=== PATIENT | male | born 1990 ===

== ENCOUNTER 2018-08-01 08:17 | Day surgery (SDC) | payer OTHER ==
[2018-07-30 14:26] VITALS: BMI 26.4
[2018-08-01 09:28] VITALS: RESP 18
[2018-08-01] MEDS ORDERED: Lactated Ringer's 1,000 ML IV ONE (09:45)
[2018-08-01] MEDS ORDERED: Lidocaine 2% Inj (20ml) ONE (09:59)
[2018-08-01] MEDS ORDERED: Bupivacaine HCl 0.5% PF (30 ml) Inj ONE (09:59)
[2018-08-01 10:08] LABS: BLOOD UREA NITROGEN 16 mg/dl (9-20); GFR NON-AFRICAN AMERICAN > 60
[2018-08-01] MEDS ORDERED: Propofol 10 mg/ml Inj (20 ML) ONE (10:27)
[2018-08-01] MEDS ORDERED: Midazolam 2 MG/2 ML VIAL ONE (10:27)
[2018-08-01] MEDS ORDERED: ceFAZolin IV 1 gm in Dextrose 2 GM/100 ML BAG IVPB ONE (10:28)
[2018-08-01] MEDS ORDERED: HEMOSTATIC MATRIX 10 ML DIS.NEEDLE TOP ONE (11:10)
[2018-08-01 13:42] VITALS: TEMP 97.6; O2SAT 100
[2018-08-01 15:57] VITALS: BP 122/69; PULSE 60
--- NOTE | 2018-08-01 21:56 | OP ---
PROCEDURE DATE: 08/01/2018 INDICATIONS: Mr. Feng is a 28-year-old male with history of urge incontinence and urgency of urination and pelvic pain, who has successfully completed a stage I InterStim test with successful results with greater than 50% reduction of symptomatology during test phase. He is here today for placement of permanent implant. PREOPERATIVE DIAGNOSIS: Urgency, urge incontinence and pelvic pain. POSTOPERATIVE DIAGNOSIS: Urgency, urge incontinence and pelvic pain. PROCEDURE: Stage II InterStim implantation and programming of device. ESTIMATED BLOOD LOSS: Minimal. ANESTHESIA: Local with sedation. SURGEON: Jairo Shea MD SALES REPRESENTATIVE DOOR TO DOOR: Raul Villarreal M.D. This is a clean case. OPERATIVE DETAILS: The patient was brought to the operative room, placed in the prone position. Sedation was administered. Timeout was called, verifying the patient name, procedure, antibiotics, and allergies. We then prepped and draped the patient in the usual sterile including a pre-scrub with chlorhexidine of the skin and alcohol-based prep for the skin. Local anesthesia was administered consisting of 0.5% Marcaine and 2% lidocaine without epinephrine. We then made an incision over previously made pocket. The skin was opened. The pocket was irrigated copiously with sterile water. The extensions connected to the bilateral leads were identified and exposed. The left lead was deemed to be the better of the two given the lower voltage required to stimulate. The right lead was from its extension piece and buried. The left lead was connected to the battery in usual fashion. The battery was placed in an antibiotic-impregnated pocket and this was placed into the skin pocket in gluteus. The skin was reapproximated with 2-0 Vicryl suture and the skin was closed with 4-0 Monocryl. Dermabond was applied to the skin. Steri-Strips were placed to the skin. The patient tolerated the procedure well. The implant was then programmed and checked for impendences. At the conclusion of the case, the patient tolerated the procedure very well. He will follow up in the office. Jairo Shea M.D.
== END 2018-08-01 15:58 | disposition home or self-care (01) ==
LOC: H.OPSURG 08:17
PROVIDERS: ATTEND Urology
DX: N39.41 Urge incontinence (principal); R10.2 Pelvic and perineal pain
CPT/HCPCS: 36415; 64561; 64590; 80048; C1767; C2615; J0690; J2001; J2250; J2704; J3010; J7120